=== PATIENT | male | born 1935 | race Caucasian/White ===

== ENCOUNTER 2022-05-04 13:59 | Observation (INO) | payer MEDICARE ==
[~2022-05-04] VITALS: Ht 160 cm; Wt 109.1 kg
[~2022-05-04 13:59] MED LIST: MAPA500T17 PO; METF500T PO; ULTR50TA PO; VITA200016 PO; VITA50TA43 PO; WARF5VL PO; [UNRECOGNIZED DRUG - CODE] PO
[2022-05-04] MEDS ORDERED: FINA5TAB2 PO (14:10)
[2022-05-04] MEDS ORDERED: LOSA50TA28 PO (14:10)
[2022-05-04] MEDS ORDERED: OXYC1TAB23 PO (14:10)
[2022-05-04] MEDS ORDERED: METF-838 PO ×2 (14:10→17:19)
[2022-05-04] MEDS ORDERED: TAMS1CAP17 PO (14:10)
[2022-05-04 15:03] LABS: BASO % 0.2 % (0.0-1.0); EOS # 0.1 10^3/uL (0.0-0.5); EOS % 0.5 % (0.0-3.0); HEMATOCRIT 42.1 % (42.0-52.0); HEMOGLOBIN 14.1 g/dl (13.5-17.5); LYMPH # 1.4 10^3/uL (1.5-5.0); MEAN CORPUSCULAR HEMOGLOBIN 31.3 pg (27.0-33.0); MEAN CORPUSCULAR HGB CONC 33.5 g/dl (32.0-36.5); MEAN CORPUSCULAR VOLUME 93.6 fl (80.0-96.0); MONO % 7.4 % (2.0-8.0); NEUTROPHILS # 11.5 10^3/uL (1.5-8.5); NEUTROPHILS % 81.5 % (36.0-66.0); PLATELET COUNT, AUTOMATED 197 10^3/uL (150-450)
[2022-05-04 15:12] LABS: INR 0.92; PROTHROMBIN TIME 12.8 SECONDS (12.7-14.5)
[2022-05-04 15:13] LABS: PARTIAL THROMBOPLASTIN TIME 29.2 SECONDS (25.9-37.0)
[2022-05-04] MEDS ORDERED: LIDOCAINE 4% TOPICAL SOLN 50 ML BTL TOP ONE (15:35)
[2022-05-04] MEDS ORDERED: OXYMETAZOLINE 0.05% NASAL SPRAY (AFRIN) ONE (15:35)
[2022-05-04] MEDS ORDERED: SILVER NITRATE APPLICATOR (1 = QTY 10) TOP ONE (16:15)
[2022-05-04] MEDS ORDERED: hydrALAZINE 20MG/ML 1ML VIAL (J0360 PER 20MG) IV PRN (16:15)
[2022-05-04 16:51] LABS: ALBUMIN 3.7 GM/DL (3.2-5.2); ALT/SGPT 22 U/L (12-78); BILIRUBIN,TOTAL 0.7 MG/DL (0.2-1.0); BLOOD UREA NITROGEN 22 MG/DL (7-18); CALCIUM LEVEL 9.1 MG/DL (8.8-10.2); CARBON DIOXIDE LEVEL 20 MEQ/L (21-32); CHLORIDE LEVEL 107 MEQ/L (98-107); CREATININE FOR GFR 1.11 MG/DL (0.70-1.30); GLOMERULAR FILTRATION RATE > 60.0 (>35); GLUCOSE, FASTING 183 MG/DL (70-100); POTASSIUM SERUM 4.2 MEQ/L (3.5-5.1); SODIUM LEVEL 140 MEQ/L (136-145); TOTAL PROTEIN 6.5 GM/DL (6.4-8.2)
[2022-05-04] MEDS ORDERED: D-50TAB PO (17:19)
[2022-05-04] MEDS ORDERED: MIRA3350 PO (17:19)
[2022-05-04] MEDS ORDERED: HOME MED LIST COMPLETE! XX SCH (17:20)
[2022-05-04] MEDS ORDERED: DEXTROSE 50% 50 ML SYRINGE IV PRN (17:30)
[2022-05-04] MEDS ORDERED: GLUCOSE 4GM CHEW TABLET PO PRN (17:30)
[2022-05-04] MEDS ORDERED: GLUCAGON INJ 1MG VIAL SC PRN (17:30)
[2022-05-04] MEDS ORDERED: PERCOCET 5MG/325MG TAB PO PRN (17:30)
[2022-05-04 17:55] LABS: RSV AMPLIFICATION NEGATIVE (NEGATIVE)
[2022-05-04] MEDS ORDERED: TAMSULOSIN 0.4 MG CAP PO SCH (18:00)
[2022-05-04] MEDS ORDERED: LOSARTAN 50MG TABLET PO SCH (18:00)
[2022-05-04 18:24] VITALS: BP 170/60
[2022-05-04] MEDS: ACETAMINOPHEN TAB 650MG DOSE (2X325MG) PO PRN (18:49)
[2022-05-04] MEDS: INSULIN LISPRO (NovoLOG) PER UNIT SC SCH (18:50)
[2022-05-04 19:55] VITALS: BP 137/88
[2022-05-04] MEDS ORDERED: amLODIPine 5 MG TAB PO SCH (21:00)
[2022-05-04] MEDS ORDERED: INSULIN LISPRO (NovoLOG) PER UNIT SC SCH (21:00)
[2022-05-04] MEDS: SODIUM CHLORIDE NASAL 0.65% SPRAY BTL (OCEAN) SCH (22:13)
[2022-05-05 00:05] VITALS: BP 133/67
[2022-05-05 04:05] VITALS: BP 137/62
[2022-05-05 06:25] LABS: HEMATOCRIT 37.9 % (42.0-52.0); HEMOGLOBIN 12.7 g/dl (13.5-17.5); MEAN CORPUSCULAR HEMOGLOBIN 31.1 pg (27.0-33.0); MEAN CORPUSCULAR HGB CONC 33.5 g/dl (32.0-36.5); MEAN CORPUSCULAR VOLUME 92.7 fl (80.0-96.0); PLATELET COUNT, AUTOMATED 173 10^3/uL (150-450); RED BLOOD COUNT 4.09 10^6/uL (4.30-6.10); WHITE BLOOD COUNT 8.9 10^3/uL (4.0-10.0)
[2022-05-05 06:53] LABS: BLOOD UREA NITROGEN 21 MG/DL (7-18); CALCIUM LEVEL 8.8 MG/DL (8.8-10.2); CARBON DIOXIDE LEVEL 28 MEQ/L (21-32); CHLORIDE LEVEL 105 MEQ/L (98-107); CREATININE FOR GFR 1.09 MG/DL (0.70-1.30); GLOMERULAR FILTRATION RATE > 60.0 (>35); GLUCOSE, FASTING 177 MG/DL (70-100); POTASSIUM SERUM 4.2 MEQ/L (3.5-5.1); SODIUM LEVEL 136 MEQ/L (136-145)
[2022-05-05 07:42] VITALS: BP 156/70
[2022-05-05] MEDS ORDERED: MIRALAX *UNIT DOSE* 17GM PACKET PO SCH (09:00)
[2022-05-05] MEDS ORDERED: FINASTERIDE 5MG TAB PO SCH (09:00)
[2022-05-05 09:12] VITALS: BP 150/80
[2022-05-05] MEDS ORDERED: Sodium Chloride Nasal Spray (09:49)
[2022-05-05] MEDS ORDERED: AMLO2.5T3 PO (09:49)
[2022-05-05] MEDS ORDERED: OCEA0.654 NARES (09:51)
[2022-05-05] MEDS ORDERED: AMOX875T2 PO (09:56)
[2022-05-05 10:29] VITALS: BP 150/80
[2022-05-05] MEDS: ACETAMINOPHEN TAB 650MG DOSE (2X325MG) PO PRN (10:29)
[2022-05-05] MEDS: INSULIN LISPRO (NovoLOG) PER UNIT SC SCH ×2 (10:30→13:40)
[2022-05-05] MEDS: SODIUM CHLORIDE NASAL 0.65% SPRAY BTL (OCEAN) SCH (10:30)
[2022-05-05 11:51] VITALS: BP 130/75
== END 2022-05-05 13:19 | disposition home or self-care (01) ==
LOC: M ED 13:59 → M ED INP 16:47 → ENRESERV 17:07 → M PCU 18:28
PROVIDERS: ADMIT Internal Medicine; ATTEND Internal Medicine
DX: R04.0 Epistaxis (principal); I16.0 Hypertensive urgency; E11.9 Type 2 diabetes mellitus without complications; N40.0 Benign prostatic hyperplasia without lower urinary tract symptoms; R51.9 Headache, unspecified; J30.9 Allergic rhinitis, unspecified; K59.00 Constipation, unspecified; M19.90 Unspecified osteoarthritis, unspecified site; R42 Dizziness and giddiness; I51.7 Cardiomegaly; E66.9 Obesity, unspecified; Z79.899 Other long term (current) drug therapy; Z79.84 Long term (current) use of oral hypoglycemic drugs
CPT/HCPCS: 30903; 36415; 80048; 80053; 85025; 85027; 85610; 85730; 86850; 86900; 86901; 87631; 93005; 96374; 99284; G0378; J0360; J1815